=== PATIENT | female | born 1995 | race Caucasian/White ===

== ENCOUNTER → 2017-06-23 22:52 | Observation (INO) ==
[2017-06-23 22:22] LABS: Bilirubin,Urine Negative (Negative); Blood,Urine Negative (Negative); Clarity,Urine Cloudy (Clear); Color,Urine Yellow (Yellow); Glucose,Urine (UA) Normal (Normal); Ketones,Urine Negative (Negative); Leukocyte Esterase,Urine Small (Negative); Nitrite,Urine Negative (Negative); PH,Urine 7.5 pH Units (5.0-8.0); Protein,Urine 30 mg/dL (Neg-Trace); Specific Gravity,Urine > 1.030 (1.010-1.025); Urobilinogen,Urine Normal (Normal)
[2017-06-23 22:24] LABS: Bacteria,Urine Few per hpf (None-Few); Hyaline Casts,Urine None Seen per lpf (None-Few); Squamous Epithelial Cell,Urine Many per lpf (None-Few)
[2017-06-23 22:32] LABS: Amphetamine Screen,Urine Negative ng/mL (Cutoff=1000); Barbiturate Screen,Urine Negative ng/mL (Cutoff=200); Benzodiazepines Screen,Urine Negative ng/mL (Cutoff=200); Cannabinoid Screen,Urine Negative ng/mL (Cutoff = 50); Cocaine Screen,Urine Negative ng/mL (Cutoff= 300); Opiate Screen,Urine Negative ng/mL (Cutoff=300); Phencyclidine Screen,Urine Negative ng/mL (Cutoff=25)
--- NOTE | 2017-06-23 22:47 | OB/GYN Progress Note ---
Date of Encounter: 06/23/17 Time of Encounter: 22:44 - Assessment and Plan (1) 32 weeks gestation of Current Visit: Yes Status: Acute NST reactive (2) uterine contractions in third trimester, antepartum Current Visit: Yes Status: Acute Pt reports contractions are less frequent than the were earlier. She desires discharge home. SVE unchanged from last visit earlier this week. Good FM. Discharge home with precautions. Pt instructed to be on pelvic rest. She admits that she was told this by her clinic as well. Subjective - Subjective Interval history: 22 year-old presenting at 32 weeks gestation with c/o contractions that started around 1700 this evening. She admits to intercourse at around 1500 prior to the onset of contractions. She is a patient of the [facility] clinic. She has a history of contractions with her first but delivered full term. She was 2cm dilated at her PN visit earlier this week. She denies LOF, VB , or any other complaints. Good FM. Antepartum ROS: movement normal, contractions, no loss of fluid, no vaginal bleeding Objective - Vital Signs Vital Signs: Intake and Output 06/23/17 06/23/17 06/23/17 07:59 15:59 23:59 Other: Weight 53.9 kg Patient Weight 06/23/17 23:59 Weight 53.9 kg - Exam FHR: category 1 FHR comments: NST reactive. Contractions irregular Abdomen: Present: soft, gravid. Absent: tenderness Uterus: Absent: tenderness Cervical dilation: 2 cm per RN. No change from PN visit earlier this week. - Labs Labs: Abnormal lab results Urine Clarity Cloudy (Clear) A 06/23/17 22:10 Ur Specific [place] > 1.030 (1.010-1.025) H 06/23/17 22:10 Urine Protein 30 mg/dL (Neg-Trace) H 06/23/17 22:10 Ur Leukocyte Esterase Small (Negative) H 06/23/17 22:10 Urine Microscopic RBC 5-15 per hpf (0-3) H 06/23/17 22:10 Urine Microscopic WBC 5-15 per hpf (0-3) H 06/23/17 22:10 Ur Squamous Epith Cells Many per lpf (None-Few) H 06/23/17 22:10 Ur Culture Indicated? NO. (NO) A 06/23/17 22:10
== END | disposition home or self-care (01) ==
LOC: 1NENULAB
PROVIDERS: ADMIT Registered Nurse; ATTEND Registered Nurse

== ENCOUNTER → 2017-06-27 07:12 | Observation (INO) ==
[2017-06-27 03:55] LABS: Bilirubin,Urine Negative (Negative); Blood,Urine Negative (Negative); Clarity,Urine Cloudy (Clear); Color,Urine Yellow (Yellow); Glucose,Urine (UA) Normal (Normal); Ketones,Urine Negative (Negative); Leukocyte Esterase,Urine Small (Negative); Nitrite,Urine Negative (Negative); PH,Urine 6.5 pH Units (5.0-8.0); Protein,Urine Trace mg/dL (Neg-Trace); Specific Gravity,Urine 1.026 (1.010-1.025); Urobilinogen,Urine Normal (Normal)
[2017-06-27 03:57] LABS: Hyaline Casts,Urine None Seen per lpf (None-Few); RBC,Urine 0-3 per hpf (0-3); Squamous Epithelial Cell,Urine Many per lpf (None-Few)
[2017-06-27 04:09] LABS: Amorphous Sediment,Urine Few (Few); Bacteria,Urine Few per hpf (None-Few)
[2017-06-27 04:19] LABS: Amphetamine Screen,Urine Negative ng/mL (Cutoff=1000); Barbiturate Screen,Urine Negative ng/mL (Cutoff=200); Benzodiazepines Screen,Urine Negative ng/mL (Cutoff=200); Cannabinoid Screen,Urine Negative ng/mL (Cutoff = 50); Cocaine Screen,Urine Negative ng/mL (Cutoff= 300); Opiate Screen,Urine Negative ng/mL (Cutoff=300); Phencyclidine Screen,Urine Negative ng/mL (Cutoff=25)
[2017-06-27 06:12] LABS: Hematocrit 29.6 % (35.3-44.9); Hemoglobin 10.1 g/dL (11.5-15.4); Mean Corpuscular HGB Conc 34.1 g/dL (31.6-35.5); Mean Corpuscular Hemoglobin 29.2 pg (28.0-33.3); Mean Corpuscular Volume 85.5 fL (83.0-100.0); Mean Platelet Volume 9.8 fL (9.4-12.4); Platelet Count 145 K/mcL (140-400); Red Blood Count 3.46 M/mcL (3.82-4.97); Red Cell Distribution Width 12.7 % (11.5-14.5)
--- NOTE | 2017-06-27 06:19 | OB/GYN History & Physical ---
Date of Encounter: 06/27/17 Time of Encounter: 06:15 Assessment and Plan (1) 31 weeks gestation of Current visit: Yes Status: Acute admitted for observation (2) uterine contractions in third trimester, antepartum Current visit: No Status: Acute CBC Terbutaline SQ x1 History of Present Illness Chief complaint: low back pain and contractions HPI: Ms. Jiménez is a 22 year old female at 31w6d presented to labor and delivery with complaints that "baby is coming out". SVE per RN 1-2/60/-2. Patient was placed on EFM and toco. Patient reports pain started earlier in the evening and got worse. Patient drove herself and young child to hospital. Patient denies LOF or VB. Patient reports +FM. Patient denies intercourse in past 48 hours, dysuria, urinary frequency, headache, visual disturbances or nausea and vomiting. Patient receives care in [place]. Patient denies any problems with current or past . Last delivery was term. Blood type: O Positive Rubella: Immune Hep B: Nonreactive Past Med Surg Social Fam HX - Past Medical History Source: patient Medical history: no medical history Psychiatric history: no psych history - Past Surgical History Surgical History: no surgical history - Social History Smoking Status: Former smoker Smokeless Tobacco Status: No Alcohol use: none Drug use: none Current living situation: Home - Independent Activity Level: Independent ambulation Recent Out of Country Travel Within the Last 8 Weeks: No Exposure or Possible Exposure to Illness During Travel: No - Family History Mother Living Status: Still Living Hx Family GI Disorders: Yes (Crohns) Obstetrical History - Pregnancies : 2 Para: 1 Term: 1 : 0 Ab's: 0 Livin Medications and Allergies No Known Home Drugs 06/23/17 [History] 3 Allergy/AdvReac Type Severity Reaction Status Date / Time No Known Allergies Allergy Verified 06/23/17 22:02 Review of System OB - Constitutional Constitutional ROS IM: no chills, no fever(s), no headache(s) - Cardiovascular Cardiovascular: no chest pain, no lightheadedness, no palpitations - Respiratory Respiratory: no cough, no dyspnea - Gastrointestinal Gastrointestinal: no constipation, no diarrhea, no heartburn, no nausea, no vomiting - Genitourinary Genitourinary: no abnormal vaginal bleeding, no difficulty urinating, no dysuria , no flank pain, no urinary frequency, no urinary hesitancy, no urinary urgency , no vaginal discharge, no vaginal odor, no vaginal pruritis Exam - Constitutional Constitutional: well developed, well nourished, no acute distress, average body habitus - HEENT HEENT: Normocephaly, Mucus Membranes Moist - Neck Neck exam: full ROM, supple - Lungs Respiratory exam: CTAB - Cardiovascular Cardiovascular exam: RRR, +S1, +S2 - Abdomen Abdomen: Present: bowel sounds normal, gravid, non tender - Extremities Extremities exam: full ROM, normal capillary refill, normal inspection Deep Tendon Reflex Grade: 2+ Normal - Cervix Dilation: 1 (1.5 per RN) Effacement: 60 Station: -2 - Uterus Uterus exam: Present: normal size, normal contour - Comments Comments: FHR 130 bpm moderate variability +15x15 accels no decels noted. Contractions irregular at this time. Results Result Diagrams: 06/27/17 05:56 Abnormal lab results WBC 11.6 K/mcL (4.3-11.1) H 06/27/17 05:56 RBC 3.46 M/mcL (3.82-4.97) L 06/27/17 05:56 Hgb 10.1 g/dL (11.5-15.4) L 06/27/17 05:56 Hct 29.6 % (35.3-44.9) L 06/27/17 05:56 Urine Clarity Cloudy (Clear) A 06/27/17 03:30 Ur Specific [place] 1.026 (1.010-1.025) H 06/27/17 03:30 Ur Leukocyte Esterase Small (Negative) H 06/27/17 03:30 Urine Microscopic WBC 5-15 per hpf (0-3) H 06/27/17 03:30 Ur Squamous Epith Cells Many per lpf (None-Few) H 06/27/17 03:30 Ur Culture Indicated? NO. (NO) A 06/27/17 03:30 All other labs normal. - VTE Reasons for not Prescribing Prophylaxis: Medical contraindication
[~2017-06-27 07:12] MED LIST: Terbutaline 1 MG/ML VIAL SQ ONE
== END | disposition home or self-care (01) ==
LOC: 1NENULAB
PROVIDERS: ADMIT Advanced Practice Midwife; ATTEND Advanced Practice Midwife

== ENCOUNTER → 2017-07-14 15:08 | Observation (INO) ==
[2017-07-14 13:21] LABS: Bilirubin,Urine Negative (Negative); Blood,Urine Negative (Negative); Clarity,Urine Cloudy (Clear); Color,Urine Yellow (Yellow); Glucose,Urine (UA) Normal (Normal); Ketones,Urine Negative (Negative); Leukocyte Esterase,Urine Small (Negative); Nitrite,Urine Negative (Negative); Protein,Urine Trace mg/dL (Neg-Trace); Specific Gravity,Urine 1.025 (1.010-1.025); Urobilinogen,Urine Normal (Normal)
[2017-07-14 13:26] LABS: Bacteria,Urine Few per hpf (None-Few); Hyaline Casts,Urine None Seen per lpf (None-Few); Squamous Epithelial Cell,Urine Many per lpf (None-Few)
--- NOTE | 2017-07-14 14:24 | OB/GYN Progress Note ---
Date of Encounter: 07/14/17 Time of Encounter: 14:21 - Assessment and Plan (1) 34 weeks gestation of Current Visit: Yes Status: Acute Maintain appointments with [facility] labor precautions given Discharge home (2) Vaginal discharge during in third trimester Current Visit: Yes Status: Acute Vaginosis panel-negative Subjective - Subjective Principal diagnosis: Vaginal discharge in Interval history: Ms. Jiménez is a 22-year-old who presents today with complaints of leaking of fluid. She reports after urinating this morning she felt more fluid come out without her control. She also reports as the day has progressed when she bends over or immune suicide she feels a gush of fluid. Has never. Appears clear. She endorses good movement and denies contractions and vaginal bleeding. She is typically seen at [facility] as our practice transferred her care. However she does not know why but she thinks that it is because she had an incidence of contractions during her first . Antepartum ROS: new complaints, loss of fluid, movement normal, no vaginal bleeding, no contractions Objective - Exam FHR: category 1 FHR comments: Baseline 150 Moderate variability Accelerations present 15 x 15 no decelerations FHR category I Irritability on toco Auscultation: bilateral: normal Abdomen: Present: normal appearance, soft, gravid Uterus: Present: normal, firm Cervical dilation: 3 Cervix effacement: 40 station: -3 - Labs Labs: Abnormal lab results Urine Clarity Cloudy (Clear) A 07/14/17 12:49 Ur Leukocyte Esterase Small (Negative) H 07/14/17 12:49 Urine Microscopic RBC 5-15 per hpf (0-3) H 07/14/17 12:49 Urine Microscopic WBC 5-15 per hpf (0-3) H 07/14/17 12:49 Ur Squamous Epith Cells Many per lpf (None-Few) H 07/14/17 12:49 Ur Culture Indicated? NO. (NO) A 07/14/17 12:49
[2017-07-14 14:32] LABS: Candida DNA Not Detected (Not Detect); Gardnerella DNA Not Detected (Not Detect); Trichomonas DNA Not Detected (Not Detect)
[2017-07-14 15:57] LABS: Amphetamine Screen,Urine Negative ng/mL (Cutoff=1000); Barbiturate Screen,Urine Negative ng/mL (Cutoff=200); Benzodiazepines Screen,Urine Negative ng/mL (Cutoff=200); Cannabinoid Screen,Urine Negative ng/mL (Cutoff = 50); Cocaine Screen,Urine Negative ng/mL (Cutoff= 300); Opiate Screen,Urine Negative ng/mL (Cutoff=300); Phencyclidine Screen,Urine Negative ng/mL (Cutoff=25)
== END | disposition home or self-care (01) ==
LOC: 1NENULAB
PROVIDERS: ADMIT Obstetrics & Gynecology; ATTEND Obstetrics & Gynecology

== ENCOUNTER → 2017-07-31 12:40 | Observation (INO) ==
[2017-07-31 11:43] LABS: Bilirubin,Urine Negative (Negative); Blood,Urine Negative (Negative); Color,Urine Yellow (Yellow); Glucose,Urine (UA) Normal (Normal); Ketones,Urine Negative (Negative); Leukocyte Esterase,Urine Small (Negative); Nitrite,Urine Negative (Negative); Protein,Urine Negative (Neg-Trace); Urobilinogen,Urine Normal (Normal)
[2017-07-31 11:46] LABS: Bacteria,Urine Few per hpf (None-Few); Hyaline Casts,Urine None Seen per lpf (None-Few); RBC,Urine 0-3 per hpf (0-3); Squamous Epithelial Cell,Urine Many per lpf (None-Few)
--- NOTE | 2017-07-31 11:52 | OB/GYN Progress Note ---
Date of Encounter: 07/31/17 Time of Encounter: 11:49 - Assessment and Plan (1) 36 weeks gestation of Current Visit: Yes Status: Acute admitted for observation (2) NST (non-stress test) reactive on surveillance Current Visit: Yes Status: Acute baseline 130 bpm moderate variability +15x15 accels no decels noted. No contractions. Cat. 1 tracing. Subjective - Subjective Principal diagnosis: vaginal and rectal pressure Interval history: Patient is a 22 y/o @ 36w5d presents to labor and delivery with complaints of vaginal and rectal pressure. Patient denies contractions, LOF or VB. Patient does report +FM. Patient reports history of contractions around 26 weeks with current and was given terbutaline at that time. Patient denies any complications with current other than being breech at last appointment. Patient receives care at the [facility]. Patient states she last ate at 0830. Antepartum ROS: movement normal, no loss of fluid, no vaginal bleeding, no contractions Objective - Vital Signs Vital Signs: Intake and Output 07/30/17 07/31/17 07/31/17 23:59 07:59 15:59 Other: Weight 119.7 kg Patient Weight 07/31/17 23:59 Weight 119.7 kg - Exam FHR: auscultation normal, category 1 FHR comments: FHR baseline 1130 bpm moderate variability +15x15 accels no decels noted. No contractions noted. Cat. 1 tracing. Auscultation: bilateral: normal Abdomen: Present: normal appearance, soft, gravid Uterus: Present: normal Cervical dilation: 3.5 per RN station: -2
[2017-07-31 11:56] LABS: Clarity,Urine Slightly Hazy (Clear)
[2017-07-31 13:54] LABS: Amphetamine Screen,Urine Negative ng/mL (Cutoff=1000); Barbiturate Screen,Urine Negative ng/mL (Cutoff=200); Benzodiazepines Screen,Urine Negative ng/mL (Cutoff=200); Cannabinoid Screen,Urine Negative ng/mL (Cutoff = 50); Cocaine Screen,Urine Negative ng/mL (Cutoff= 300); Opiate Screen,Urine Negative ng/mL (Cutoff=300); Phencyclidine Screen,Urine Negative ng/mL (Cutoff=25)
== END | disposition home or self-care (01) ==
LOC: 1NENULAB
PROVIDERS: ADMIT Advanced Practice Midwife; ATTEND Advanced Practice Midwife

== ENCOUNTER 2018-08-15 22:34 | Observation (INO) ==
[2018-08-15 23:13] LABS: Bilirubin,Urine Negative (Negative); Blood,Urine Negative (Negative); Clarity,Urine Clear (Clear); Color,Urine Yellow (Yellow); Glucose,Urine (UA) Normal (Normal); Ketones,Urine Negative (Negative); Leukocyte Esterase,Urine Negative (Negative); Nitrite,Urine Negative (Negative); PH,Urine 6.5 pH Units (5.0-8.0); Protein,Urine Negative (Neg-Trace); Specific Gravity,Urine 1.021 (1.010-1.025); Urobilinogen,Urine Normal (Normal)
[2018-08-15] MEDS ORDERED: Betamethasone Acet/SodPhos 30 MG/5 ML VIAL IM SCH (23:45)
[2018-08-15 23:58] LABS: Amphetamine Screen,Urine Negative ng/mL (Cutoff=1000); Barbiturate Screen,Urine Negative ng/mL (Cutoff=200); Benzodiazepines Screen,Urine Negative ng/mL (Cutoff=200); Cannabinoid Screen,Urine Negative ng/mL (Cutoff = 50); Cocaine Screen,Urine Negative ng/mL (Cutoff= 300); Opiate Screen,Urine Negative ng/mL (Cutoff=300); Phencyclidine Screen,Urine Negative ng/mL (Cutoff=25)
[2018-08-16] MEDS ORDERED: Terbutaline 1 MG/ML VIAL SQ ONE ×2 (00:53→00:56)
[2018-08-16] MEDS ORDERED: Ringers Solution, Lactated 1,000 ML IVC ONE (01:24)
[2018-08-16] MEDS ORDERED: Ringers Solution, Lactated 1,000 ML ONE ×2 (02:20→05:40)
[2018-08-16] MEDS ORDERED: Morphine Sulfate 2 MG/ML SYRINGE IVP ONE (03:13)
[2018-08-16] MEDS ORDERED: NIFEdipine 10 MG CAPSULE PO ONE (05:26)
[2018-08-16 09:25] LABS: Candida DNA Not Detected (Not Detect); Gardnerella DNA Not Detected (Not Detect); Trichomonas DNA Not Detected (Not Detect)
== END 2018-08-16 09:09 | disposition home or self-care (01) ==
LOC: 1NENULAB
PROVIDERS: ADMIT Advanced Practice Midwife; ATTEND Advanced Practice Midwife

== ENCOUNTER 2018-08-16 23:45 | Observation (INO) ==
[~2018-08-16 23:45] MED LIST changes: +Betamethasone Acet/SodPhos 30 MG/5 ML VIAL IM SCH; -Terbutaline 1 MG/ML VIAL SQ ONE
[2018-08-16] MEDS ORDERED: Terbutaline 1 MG/ML VIAL SQ ONE (23:49)
--- NOTE | 2018-09-01 14:53 | Event Note ---
Date of Encounter: 08/17/18 Time of Encounter: 00:10 Patient was here for second dose of Celestone
== END 2018-08-17 00:20 | disposition home or self-care (01) ==
LOC: 1NENULAB
PROVIDERS: ADMIT Registered Nurse; ATTEND Registered Nurse

== ENCOUNTER → 2018-08-29 23:18 | Observation (INO) ==
[2018-08-29 21:32] LABS: Bilirubin,Urine Negative (Negative); Blood,Urine Negative (Negative); Clarity,Urine Turbid (Clear); Color,Urine Yellow (Yellow); Glucose,Urine (UA) Normal (Normal); Ketones,Urine Negative (Negative); Leukocyte Esterase,Urine Small (Negative); Nitrite,Urine Negative (Negative); PH,Urine 7.5 pH Units (5.0-8.0); Protein,Urine Trace mg/dL (Neg-Trace); Specific Gravity,Urine 1.023 (1.010-1.025); Urobilinogen,Urine Normal (Normal)
[2018-08-29 21:34] LABS: Bacteria,Urine Many per hpf (None-Few); Hyaline Casts,Urine None Seen per lpf (None-Few); RBC,Urine 0-3 per hpf (0-3); Squamous Epithelial Cell,Urine Many per lpf (None-Few)
[2018-08-29 21:53] LABS: Amphetamine Screen,Urine Negative ng/mL (Cutoff=1000); Barbiturate Screen,Urine Negative ng/mL (Cutoff=200); Benzodiazepines Screen,Urine Negative ng/mL (Cutoff=200); Cannabinoid Screen,Urine Negative ng/mL (Cutoff = 50); Cocaine Screen,Urine Negative ng/mL (Cutoff= 300); Opiate Screen,Urine Negative ng/mL (Cutoff=300); Phencyclidine Screen,Urine Negative ng/mL (Cutoff=25)
--- NOTE | 2018-08-29 22:48 | Discharge Summary ---
Date of Encounter: 08/29/18 Time of Encounter: 22:46 - Discharge Diagnosis (1) 31 weeks gestation of Priority: Primary Status: Acute Comments: Admit to observation for labor evaluation (2) uterine contractions in third trimester, antepartum Priority: Secondary Status: Acute Comments: Rare contractions noted. No cervical change in > 1 hr. (3) NST (non-stress test) reactive on surveillance Priority: Secondary Status: Acute Comments: FHR 145 bpm, moderate variability, +15x15 accels, no decels. - Discharge Medications Prescriptions: No Action Complete Caplet 1 mg PO DAILY Ferrous Sulfate 1 tab PO DAILY Cyclobenzaprine [Flexeril] 10 mg PO HS PRN #5 tablet PRN Reason: back pain NIFEdipine [Procardia] 10 mg PO Q6HR Home Medications: Complete Caplet 1 mg PO DAILY 07/31/17 [History] Ferrous Sulfate 1 tab PO DAILY 08/19/18 [History] Cyclobenzaprine [Flexeril] 10 mg PO HS PRN #5 tablet 08/20/18 [Rx] NIFEdipine [Procardia] 10 mg PO Q6HR 08/29/18 [History] Allergies/Adverse Reactions: Allergy/AdvReac Type Severity Reaction Status Date / Time No Known Allergies Allergy Verified 08/29/18 21:09 Data Procedures and tests throughout hospitalization: Laboratory Tests 08/29/18 08/29/18 21:15 21:15 Urine Color Yellow Urine Clarity Turbid A Urine pH 7.5 Ur Specific [place] 1.023 Urine Protein Trace Urine Glucose (UA) Normal Urine Ketones Negative Urine Blood Negative Urine Nitrite Negative Urine Bilirubin Negative Urine Urobilinogen Normal Ur Leukocyte Esterase Small H Urine Microscopic RBC 0-3 Urine Microscopic WBC 5-15 H Ur Squamous Epith Cells Many H Urine Bacteria Many H Hyaline Casts None Seen Ur Culture Indicated? YES A Urine Opiates Screen Negative Ur Buprenorphine Scrn Negative Ur Barbiturates Screen Negative Ur Phencyclidine Scrn Negative Ur Amphetamines Screen Negative U Benzodiazepines Scrn Negative Urine Cocaine Screen Negative U Marijuana (THC) Screen Negative Ur Drug Screen Interp See Below Labs on day of discharge: Labs from last 24 hours 08/29/18 08/29/18 21:15 21:15 Urine Color Yellow Urine Clarity Turbid A Urine pH 7.5 Ur Specific [place] 1.023 Urine Protein Trace Urine Glucose (UA) Normal Urine Ketones Negative Urine Blood Negative Urine Nitrite Negative Urine Bilirubin Negative Urine Urobilinogen Normal Ur Leukocyte Esterase Small H Urine Microscopic RBC 0-3 Urine Microscopic WBC 5-15 H Ur Squamous Epith Cells Many H Urine Bacteria Many H Hyaline Casts None Seen Ur Culture Indicated? YES A Urine Opiates Screen Negative Ur Buprenorphine Scrn Negative Ur Barbiturates Screen Negative Ur Phencyclidine Scrn Negative Ur Amphetamines Screen Negative U Benzodiazepines Scrn Negative Urine Cocaine Screen Negative U Marijuana (THC) Screen Negative Ur Drug Screen Interp See Below Preliminary micro results at discharge 08/29/18 21:15 Urine Culture - Preliminary Urine,Clean Catch Culture is incubating. Date of admission: 08/29/18 20:57 Discharging clinician: Susy Jones Anticipated date of discharge: 08/29/18 - Patient Status Disposition: Home, Self-Care Condition: Good Functional capacity at discharge: independent ambulation Overall status at discharge: patient is progressing back to baseline - Discharge Instructions Follow Up With: Jaxon Malin DO [Partnered Physician] - - Diet and Activity Activity: resume usual activities as tolerated Diet: regular diet Hospital Course TRANSPORTER DRIVER Hospital course: Patient arrived with complaint of possible contractions. She was here approximately 2 weeks ago for contractions and was given a course of steroids at that time. Her cervix on admission remains unchanged from previous visit approximately one week ago. She reports positive movement, denies vaginal bleeding and fluid leakage. On SVE, RN noted a large amount of yeast- like discharge on glove so vaginosis panel was collected and is pending at time of note. Will treat for any positive results. Patient has Procardia 10mg to take q6 hr prn for contractions. She is to return to her OB care provider as scheduled for routine care. Time Attestation: Total time spent providing and/or coordinating discharge services: Time Spent: Less than 30 minutes Exam - Constitutional General appearance IM: A&O X 3, no acute distress - Respiratory Respiratory exam: Absent: respiratory distress - Cardiovascular Cardiovascular exam IM: Absent: irregular rhythm - GI/Abdominal GI/Abdominal exam IM: normal bowel sounds Incision: normal, dry, intact - Rectal Rectal exam: deferred - Uterine Tone: Firm - Extremities Exam Extremities exam IM: Absent: calf tenderness - VTE Reasons for not Prescribing Prophylaxis: Treatment not Indicated - Low risk for VTE
[~2018-08-29 23:18] MED LIST changes: -Betamethasone Acet/SodPhos 30 MG/5 ML VIAL IM SCH; +hydrOXYzine pamoate 25 MG CAPSULE PO ONE
[2018-08-29 23:53] LABS: Trichomonas DNA Not Detected (Not Detect)
[2018-08-29 23:54] LABS: Candida DNA Not Detected (Not Detect); Gardnerella DNA Not Detected (Not Detect)
== END | disposition home or self-care (01) ==
LOC: 1NENULAB
PROVIDERS: ADMIT Obstetrics & Gynecology; ATTEND Obstetrics & Gynecology

== ENCOUNTER 2018-09-20 07:27 | Observation (INO) | END 2018-09-20 09:44 | disposition home or self-care (01) | LOC: 1NENULAB | PROVIDERS: ADMIT Obstetrics & Gynecology; ATTEND Obstetrics & Gynecology ==

== ENCOUNTER 2018-09-26 20:09 | Observation (INO) ==
[2018-09-26 20:36] LABS: Bilirubin,Urine Negative (Negative); Blood,Urine Moderate (Negative); Clarity,Urine Clear (Clear); Color,Urine Yellow (Yellow); Glucose,Urine (UA) Normal (Normal); Ketones,Urine Negative (Negative); Leukocyte Esterase,Urine Small (Negative); Nitrite,Urine Negative (Negative); Protein,Urine Negative (Neg-Trace); Specific Gravity,Urine 1.008 (1.010-1.025); Urobilinogen,Urine Normal (Normal)
[2018-09-26 20:37] LABS: Bacteria,Urine Few per hpf (None-Few); Hyaline Casts,Urine None Seen per lpf (None-Few); Squamous Epithelial Cell,Urine Many per lpf (None-Few)
[2018-09-26 20:46] LABS: Amphetamine Screen,Urine Negative ng/mL (Cutoff=1000); Barbiturate Screen,Urine Negative ng/mL (Cutoff=200); Benzodiazepines Screen,Urine Negative ng/mL (Cutoff=200); Cannabinoid Screen,Urine Negative ng/mL (Cutoff = 50); Cocaine Screen,Urine Negative ng/mL (Cutoff= 300); Opiate Screen,Urine Negative ng/mL (Cutoff=300); Phencyclidine Screen,Urine Negative ng/mL (Cutoff=25)
[2018-09-26 22:30] LABS: Candida DNA Not Detected (Not Detect); Gardnerella DNA Not Detected (Not Detect); Trichomonas DNA Not Detected (Not Detect)
== END 2018-09-26 21:20 | disposition home or self-care (01) ==
LOC: 1NENULAB
PROVIDERS: ADMIT Advanced Practice Midwife; ATTEND Advanced Practice Midwife

== ENCOUNTER 2018-10-01 21:39 | Observation (INO) ==
[2018-10-01 23:05] LABS: Bilirubin,Urine Negative (Negative); Blood,Urine Negative (Negative); Clarity,Urine Cloudy (Clear); Color,Urine Yellow (Yellow); Glucose,Urine (UA) Normal (Normal); Ketones,Urine Negative (Negative); Leukocyte Esterase,Urine Large (Negative); Nitrite,Urine Negative (Negative); Protein,Urine Negative (Neg-Trace); Urobilinogen,Urine Normal (Normal)
[2018-10-01 23:10] LABS: Bacteria,Urine Moderate per hpf (None-Few); Hyaline Casts,Urine None Seen per lpf (None-Few); RBC,Urine 0-3 per hpf (0-3); Squamous Epithelial Cell,Urine Many per lpf (None-Few); WBC,Urine 15-30 per hpf (0-3)
[2018-10-01 23:14] LABS: Amphetamine Screen,Urine Negative ng/mL (Cutoff=1000); Barbiturate Screen,Urine Negative ng/mL (Cutoff=200); Benzodiazepines Screen,Urine Negative ng/mL (Cutoff=200); Cannabinoid Screen,Urine Negative ng/mL (Cutoff = 50); Cocaine Screen,Urine Negative ng/mL (Cutoff= 300); Opiate Screen,Urine Negative ng/mL (Cutoff=300); Phencyclidine Screen,Urine Negative ng/mL (Cutoff=25)
== END 2018-10-02 | disposition home or self-care (01) ==
LOC: 1NENULAB
PROVIDERS: ADMIT Advanced Practice Midwife; ATTEND Advanced Practice Midwife

== ENCOUNTER 2018-10-03 03:48 | Observation (INO) ==
[2018-10-03] MEDS ORDERED: Ringers Solution, Lactated 1,000 ML ONE (04:09)
[2018-10-03 04:36] LABS: Amphetamine Screen,Urine Negative ng/mL (Cutoff=1000); Barbiturate Screen,Urine Negative ng/mL (Cutoff=200); Benzodiazepines Screen,Urine Negative ng/mL (Cutoff=200); Cannabinoid Screen,Urine Negative ng/mL (Cutoff = 50); Cocaine Screen,Urine Negative ng/mL (Cutoff= 300); Opiate Screen,Urine Negative ng/mL (Cutoff=300); Phencyclidine Screen,Urine Negative ng/mL (Cutoff=25)
--- NOTE | 2018-10-03 06:15 | Discharge Summary ---
Date of Encounter: 10/03/18 Time of Encounter: 06:15 - Discharge Diagnosis (1) 36 weeks gestation of Priority: Primary Status: Acute Comments: Follow up with Dr. Malin as scheduled PTL parameters discussed Discharge home (2) NST (non-stress test) reactive on surveillance Priority: Secondary Status: Acute (3) uterine contractions in third trimester, antepartum Priority: Secondary Status: Acute Comments: Monitored for 2+ hours with no cervical change. - Discharge Medications Prescriptions: No Action Complete Caplet 1 mg PO DAILY Ferrous Sulfate 1 tab PO DAILY NIFEdipine [Procardia] 10 mg PO Q6HR Cetirizine HCl [Zyrtec] 10 mg PO Home Medications: Complete Caplet 1 mg PO DAILY 07/31/17 [History] Ferrous Sulfate 1 tab PO DAILY 08/19/18 [History] NIFEdipine [Procardia] 10 mg PO Q6HR 08/29/18 [History] Cetirizine HCl [Zyrtec] 10 mg PO 09/20/18 [History] Allergies/Adverse Reactions: Allergy/AdvReac Type Severity Reaction Status Date / Time No Known Allergies Allergy Verified 10/01/18 21:57 Data Procedures and tests throughout hospitalization: Laboratory Tests 10/03/18 03:56 Urine Opiates Screen Negative Ur Buprenorphine Scrn Negative Ur Barbiturates Screen Negative Ur Phencyclidine Scrn Negative Ur Amphetamines Screen Negative U Benzodiazepines Scrn Negative Urine Cocaine Screen Negative U Marijuana (THC) Screen Negative Ur Drug Screen Interp See Below Labs on day of discharge: Labs from last 24 hours 10/03/18 03:56 Urine Opiates Screen Negative Ur Buprenorphine Scrn Negative Ur Barbiturates Screen Negative Ur Phencyclidine Scrn Negative Ur Amphetamines Screen Negative U Benzodiazepines Scrn Negative Urine Cocaine Screen Negative U Marijuana (THC) Screen Negative Ur Drug Screen Interp See Below Date of admission: 10/03/18 03:48 Discharging clinician: Lizbeth Stephens Anticipated date of discharge: 10/03/18 - Patient Status Disposition: Home, Self-Care Condition: Good Functional capacity at discharge: independent ambulation Overall status at discharge: patient is progressing back to baseline - Discharge Instructions Follow Up With: Jaxon Malin DO [Partnered Physician] - - Diet and Activity Activity: increase activity as tolerated Diet: regular diet 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 Jiménez is a who presents with c/o contractions since 1400 yesterday. She was seen in L&D at that time and discharged home with no cervical change. She endorses good fm and denies lof, vb. She reports she and her partner had intercourse today and afterwards the contractions became worse. She was 3/70/-2 on admission per RN and made no cervical exchange mechanic 2 hours of monitoring. She was offered medication to help with the discomfort and declined. She was given an IV bolus and contractions slowed a bit. Cat 1 FHT. Discharged home with instructions to follow up this week. Time Attestation: Total time spent providing and/or coordinating discharge services: Time Spent: Less than 30 minutes Exam - Constitutional General appearance IM: A&O X 3, morbidly obese, answers questions appropriately - Respiratory Respiratory exam: Present: CTAB - Cardiovascular Cardiovascular exam IM: Present: RRR, +S1, +S2 - GI/Abdominal GI/Abdominal exam IM: normal bowel sounds, no peritoneal signs - Rectal Rectal exam: deferred - Uterine Tone: Firm - Extremities Exam Extremities exam IM: Present: full ROM, normal capillary refill, normal inspection, radial pulses palpable and symmetrical - Neurological Exam Neurological exam: alert, CN II-XII intact, normal gait, oriented X3, reflexes normal, no focal deficits, strengths equal and symetr throughout - VTE Reasons for not Prescribing Prophylaxis: Treatment not Indicated - Low risk for VTE
== END 2018-10-03 06:16 | disposition home or self-care (01) ==
LOC: 1NENULAB
PROVIDERS: ADMIT Advanced Practice Midwife; ATTEND Advanced Practice Midwife

== ENCOUNTER 2018-10-15 17:17 | Inpatient (IN) ==
--- NOTE | 2018-10-15 15:09 | OB/GYN History & Physical ---
Date of Encounter: 10/15/18 Time of Encounter: 15:06 Assessment and Plan (1) and not yet delivered in third trimester Current visit: Yes Status: Acute (2) 38 weeks gestation of Current visit: Yes Status: Acute (3) Previous section Current visit: Yes Status: Acute (4) Active labor at term Current visit: Yes Status: Acute (5) Desires (vaginal after ) trial Current visit: Yes Status: Acute Continue to observe the patient closely once patient gets to 6 cm we will admit the patient had epidural and anticipate vaginal delivery History of Present Illness HPI: Ms. Jiménez is a 23 year old female With 3 para 2 at 38-2/7 weeks who presented to labor and delivery complaining of contractions every 2-3 minutes. Patient's had multiple visits to labor and delivery for contractions. Patient is a previous section for breech presentation. First baby was delivered vaginally without any complications. Patient has consented for a TOLAC. Patient keeps changing her mind because she is wanting this baby out and keeps thinking she just wants to proceed on with section. Patient was encouraged to be patient and it will happen naturally. Patient had been 2 cm and recently was seen in the changed to 3-4 cm. Upon arrival to labor and delivery today she was still 3-4 was having irregular contractions. We observed the patient for couple hours when reexamined her she had made cervical change was good for centimeters in 2 hours later she is a good 5 cm. Patient is 0 to +1 station with bulging membranes at this time having contractions every 2-3 minutes. Did inform the patient need to just keep watching her when she gets to approximately 6 cm we can admit the patient and proceed on with delivery. She is not complaining of any leaking of fluid but states the contractions get more comfortable and they are now becoming more frequent. Past Med Surg Social Fam HX - Past Medical History Source: patient, old records reviewed Medical history: no medical history Psychiatric history: no psych history - Past Surgical History Surgical History: no surgical history, (LTCS) Additional surgical history: c/s in 2018 - Social History Smoking Status: Former smoker Smokeless Tobacco Status: No Alcohol use: none Drug use: none Occupational status: unemployed Current living situation: Home - Independent Activity Level: Independent ambulation Recent Out of Country Travel Within the Last 8 Weeks: No Exposure or Possible Exposure to Illness During Travel: No - Family History Mother Adopted: No Family Member Ethnicity: Non- Living Status: Still Living Hx Family Cardiac Disorders: No Hx Family Respiratory Disorders: No Hx Family Cancer: No Hx Family GI Disorders: No Hx Family Endocrine Disorder: No Hx Family Neuromuscular Disorders: No Hx Family Neurologic Disorders: No Hx Family HEENT Disorders: No Hx Family Autoimmune Disorders: No - Additional Family History Additional family history: Family history noncontributory Obstetrical History - Pregnancies : 3 Para: 2 Term: 2 : 0 Ab's: 0 Livin Medications and Allergies Complete Caplet 1 mg PO DAILY 07/31/17 [History] Ferrous Sulfate 1 tab PO DAILY 08/19/18 [History] Cetirizine HCl [Zyrtec] 10 mg PO 09/20/18 [History] Allergy/AdvReac Type Severity Reaction Status Date / Time No Known Allergies Allergy Verified 10/01/18 21:57 Review of System OB All systems PM: reviewed and no additional remarkable complaints except as stated Exam - Constitutional Constitutional: well developed, well nourished, moderate distress, thin - HEENT HEENT: EOMI, PERRL, Mucus Membranes Moist - Neck Neck exam: full ROM - Lungs Respiratory exam: CTAB - Cardiovascular Cardiovascular exam: RRR - Abdomen Abdomen: Present: bowel sounds normal, gravid ( heart tones 140s reactive contractions every 2 minutes) Results All other labs normal. - VTE Reasons for not Prescribing Prophylaxis: Treatment not Indicated - Low risk for VTE
--- NOTE | 2018-10-15 17:07 | OB Labor Progress Note ---
Date of Encounter: 10/15/18 Time of Encounter: 17:05 Labor Progress Note - Subjective Subjective: Patient states contractions getting more uncomfortable still every 2-3 minutes. - Cervix Cervix: 5-6/80/+1 - Heart Tones Heart Tones: heart tones 140s reactive - [place]: Contractions every 2 minutes - Interventions Interventions: We will admit patient will get patient epidural was comfortable will artificially rupture if she does not continue make appropriate change in her own we will augment with Pitocin planus anticipate vaginal delivery
[~2018-10-15 17:17] MED LIST changes: +Famotidine 20 MG/2 ML VIAL IVP PRN; +Lidocaine 1% 20 ML MDV INFILT PRN; +Metoclopramide 10 MG/2 ML VIAL IVP PRN; +Naloxone 0.4 MG/ML INJ IVP PRN; +Ondansetron 4 MG/2 ML VIAL IVP PRN; +Ringers Solution, Lactated 1,000 ML IVC SCH; -hydrOXYzine pamoate 25 MG CAPSULE PO ONE
[2018-10-15 17:52] LABS: Basophils % 0.3 %; Eosinophils # 0.2 K/mcL (0.0-0.6); Eosinophils % 1.3 %; Hematocrit 30.8 % (35.3-44.9); Hemoglobin 9.7 g/dL (11.5-15.4); Immature Granulocytes % 0.8 % (0-4); Lymphocytes # 2.7 K/mcL (0.6-4.6); Mean Corpuscular HGB Conc 31.5 g/dL (31.6-35.5); Mean Corpuscular Hemoglobin 27.3 pg (28.0-33.3); Mean Corpuscular Volume 86.8 fL (83.0-100.0); Mean Platelet Volume 9.6 fL (9.4-12.4); Monocytes # 0.9 K/mcL (0.0-1.3); Monocytes % 6.1 %; Platelet Count 209 K/mcL (140-400); Red Blood Count 3.55 M/mcL (3.82-4.97); Segmented Neutrophils % 73.5 %
[2018-10-15] MEDS ORDERED: *HR* FentaNYL (PF) 100 MCG/2 ML VIAL ONE (20:07)
[2018-10-15] MEDS ORDERED: Ropivacaine/PF 0.2% 20 ML VIAL ONE (20:07)
[2018-10-15] MEDS ORDERED: Epidural Premix (fent/bupiv) 110 ML EP ONE (20:08)
[2018-10-15] MEDS ORDERED: Epidural Premix (fent/bupiv) 110 ML EP SCH (20:30)
[2018-10-15] MEDS ORDERED: EPHEDrine 50 MG/ML VIAL IVP PRN (20:30)
--- NOTE | 2018-10-15 20:35 | Anesthesia Evaluation PreOp ---
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 Other Medical History: Denies Any Significant HX Anesthesia History: No Prior Anesthetic Complications, Past Anesthesia (csection) : Yes Alcohol Use: none Drug use: none Medications and Allergies Complete Caplet 1 mg PO DAILY 07/31/17 [History] Ferrous Sulfate 1 tab PO DAILY 08/19/18 [History] Cetirizine HCl [Zyrtec] 10 mg PO 09/20/18 [History] Allergy/AdvReac Type Severity Reaction Status Date / Time No Known Allergies Allergy Verified 10/01/18 21:57 - Meds/Allergy Pre-op Review Medications Reviewed: Yes Allergies Reviewed: Yes Beta Blockers on Current Med List: No Anesthesia Results - Labs 10/15/18 17:36 Anesthesia Exam O2 Sat Height 1.6 m Weight 57 kg Height: 63 Weight: 125 - HEENT Pupil (Motor): Pupils equal Mallampati: II Teeth: Normal Oral Opening: Greater than 3 - SHAKE TABLE OPERATOR LOC: Oriented SHAKE TABLE OPERATOR Motor: Normal RUE, Normal LUE, Normal RLE, Normal LLE, Normal Face SHAKE TABLE OPERATOR Sensory: Normal: RUE, LUE, RLE, LLE, Face - Cardiac Rhythm: Regular Murmur: None JVD: No Carotid Bruit: No - Pulmonary Breath Sounds: bilateral Clear Respiratory Effort: Symmetrical Anesthesia Assess/Plan ASA Score: 2 Level of consciousness: Cooperative Anesthetic Plan: Epidural Monitoring Plan: Standard Monitors
--- NOTE | 2018-10-15 20:41 | Anesthesia Procedures ---
Date of Encounter: 10/15/18 Time of Encounter: 20:04 (procedure end time 2039) Procedures: Anesthesia - Epidural/Spinal Patient ID/Chart reviewed: Yes Patient examined: Yes OB Eval: Contractions: Non-stressed pattern Consent Obtained: Yes Supplemental Oxygen: None/Room Air Site Prep: Aseptic Technique Patient position: upright Local Anesthetic: Lidocaine 1% Amount of Local Anesthetic used: 2 Touhy Needle Gauge: 18 Touhy Needle Depth (cm): 4 Catheter Depth at Skin (cm): 10 Test Dose (1.5% Lido + Epi): Volume given (mls): 3 Test Dose Result: Negative Loading Dose: Fentanyl (mcg): 100 Loading Dose: Other: 0.2% ropivicaine 4ml Loading Dose Administered: Thru Touhy Needle Infusion Med: 0.125% Bupivacaine w/ 2 mcg/ml Fentanyl Infusion Rate (mls/hr): [address]: Tegaderm Interspace Used: L3-L4 Loss of Resistance (ALFRED): Yes Blood: No CSF: No Paresthesia: No Procedure: Strict asepsis, one attempt at L3-4. Good ALFRED, bolus through needle, catheter threaded easily. FHR unchanged
[2018-10-15] MEDS ORDERED: *HR* Nalbuphine 10 MG/ML AMPUL IV PRN (21:04)
--- NOTE | 2018-10-15 21:11 | OB Labor Progress Note ---
Date of Encounter: 10/15/18 Time of Encounter: 21:08 Labor Progress Note - Subjective Subjective: patient comfortable after her epidural still feeling some in her back - Cervix Cervix: 6/80/+2 - Heart Tones Heart Tones: heart tones 140s reactive - Panaca Panaca: IUPC placed contractions every 2-3 minutes - Interventions Interventions: continue current care anticipate
--- NOTE | 2018-10-15 22:01 | Anesthesia Progress Note ---
Date of Encounter: 10/15/18 Time of Encounter: 21:58 Anesthesia Note - Note Note: 10/15/18 21:58 Called to patient room for pain 10/10 with contractions. Bolus of 8ml of 0.2% ropivicaine and gtt increased to 14ml/hr
[2018-10-15] MEDS ORDERED: Oxytocin 20 units/ LR 1000 mL 20 UNIT/1,000 ML BAG IVC SCH (23:15)
--- NOTE | 2018-10-16 01:32 | OB/GYN Procedure Note ---
Delivery - Delivery Date: 10/16/18 Provider: Jaxon Malin Intrapartum events: none Delivery induction: none Delivery augmentation: rupture of membranes Delivery monitor: external FHT, external uterine, internal uterine Anesthesia: epidural Quantitated Blood Loss: 50 - (s) A Infant Delivery Date: 10/16/18 Infant Delivery Time: 00:57 Presentation: vertex Position: RAMON Route of delivery: Gender: Female Viability: Viable Pounds: 5 Ounces: 14 Weight Gram: 2.65 kg at 1 minute: 9 at 5 mins: 9 Shoulder Dystocia: not encountered Specimens collected: cord blood Cord: 3 umbilical vessels - Repair Episiotomy: none Laceration Description: Periurethral (left) - Complications Delivery complications: none Delivery comments: Patient is a 23-year-old 3 para 2 at 38-2/7 weeks who presented to labor and delivery with complaint of contractions. Patient was noted to be 3-4 cm on admission which is what she has been patient's contractions every 2-3 minutes we observe the patient and she made cervical change went to 4 cm and 5 cm is not 6 cm where we admitted her. Patient is a previous section and wanted to TOLAC, she had previously signed consent to allow us to proceed on with this procedure. Patient did receive an epidural once she was comfortable she was artificially ruptured at 6 cm. We did not need to give any additional augmentation patient progressed to complete pushed approximately 3 times delivering a viable female infant in left occiput anterior presentation at 00 57. There was no nuchal cord, no meconium, infant was bulb suctioned on the abdomen, weight was 5 lbs. 14 oz. Placenta was then delivered spontaneously 3 vessel cord, sheepskin pickler Dr. Malin, first press operator Leonides Damian OMS 3, anesthesia epidural, estimated blood loss 50 mL. Lower uterine segment was palpated and noted be intact. Patient did have a left periurethral laceration was repaired with 4-0 Monocryl in a running locking stitch. Cervix and vagina was visualized intact. Patient tolerated delivery well she will be observed 2 hours before being taken the floor.
[2018-10-16] MEDS ORDERED: Acetaminophen 325 MG TABLET PO PRN (04:11)
[2018-10-16] MEDS ORDERED: Oxytocin 20 units/ LR 1000 mL 20 UNIT/1,000 ML BAG IVC SCH (04:11)
[2018-10-16] MEDS: Ibuprofen 600 MG TABLET PO PRN ×2 (08:41→19:52)
[2018-10-16] MEDS ORDERED: Prenatal Vit/FA 1 EACH TABLET PO SCH (09:00)
--- NOTE | 2018-10-16 10:37 | Discharge Summary ---
Date of Encounter: 10/16/18 Time of Encounter: 10:41 - Discharge Diagnosis (1) (vaginal after ) Priority: Primary Status: Acute Comments: Doing well, will d/c home. (2) , delivered Priority: Primary Status: Acute - Discharge Medications Prescriptions: New Ibuprofen [Motrin] 600 mg PO Q6HR PRN #30 tablet PRN Reason: Cramping No Action Complete Caplet 1 mg PO DAILY Ferrous Sulfate 1 tab PO DAILY Cetirizine HCl [Zyrtec] 10 mg PO Home Medications: Complete Caplet 1 mg PO DAILY 07/31/17 [History] Ferrous Sulfate 1 tab PO DAILY 08/19/18 [History] Cetirizine HCl [Zyrtec] 10 mg PO 09/20/18 [History] Ibuprofen [Motrin] 600 mg PO Q6HR PRN #30 tablet 10/16/18 [Rx] Allergies/Adverse Reactions: Allergy/AdvReac Type Severity Reaction Status Date / Time No Known Allergies Allergy Verified 10/01/18 21:57 Data Procedures and tests throughout hospitalization: Laboratory Tests 10/15/18 17:36 WBC 15.0 H RBC 3.55 L Hgb 9.7 L Hct 30.8 L MCV 86.8 MCH 27.3 L MCHC 31.5 L RDW 13.0 Plt Count 209 MPV 9.6 Immature Gran % 0.8 Seg Neutrophils % 73.5 Lymphocytes % 18.0 Monocytes % 6.1 Eosinophils % 1.3 Basophils % 0.3 Neutrophils # 11.0 H Lymphocytes # 2.7 Monocytes # 0.9 Eosinophils # 0.2 Basophils # 0.0 Labs on day of discharge: Labs from last 24 hours 10/15/18 17:36 WBC 15.0 H RBC 3.55 L Hgb 9.7 L Hct 30.8 L MCV 86.8 MCH 27.3 L MCHC 31.5 L RDW 13.0 Plt Count 209 MPV 9.6 Immature Gran % 0.8 Seg Neutrophils % 73.5 Lymphocytes % 18.0 Monocytes % 6.1 Eosinophils % 1.3 Basophils % 0.3 Neutrophils # 11.0 H Lymphocytes # 2.7 Monocytes # 0.9 Eosinophils # 0.2 Basophils # 0.0 - Impressions Doing well, no c/o. Desires to go home. Minimal pain. Appropriate lochia and cramping. 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 Attestation: Total time spent providing and/or coordinating discharge services: Exam - Constitutional Vitals: Temp Pulse Resp BP Pulse Ox 98.0 F 82 16 97/54 97 10/16/18 05:30 10/16/18 08:45 10/16/18 08:45 10/16/18 05:30 10/16/18 05:30 General appearance IM: A&O X 3 - Respiratory Respiratory exam: Present: CTAB - Cardiovascular Cardiovascular exam IM: Present: RRR - GI/Abdominal GI/Abdominal exam IM: normal bowel sounds - Uterus Position: 2 Fingers Below Umbilicus - Extremities Exam Extremities exam IM: Present: full ROM - Neurological Exam Neurological exam: oriented X3 - VTE Reasons for not Prescribing Prophylaxis: Treatment not Indicated - Low risk for VTE
[2018-10-16] MEDS ORDERED: Benzocaine/Menthol 56 GM AEROSOL SPRAY TP PRN (11:04)
[2018-10-16 20:22] VITALS: BP 103/64
== END 2018-10-16 21:10 | disposition home or self-care (01) ==
LOC: 1NENULAB → 1NENUOBS 10-16 03:43
PROVIDERS: ADMIT Obstetrics & Gynecology; ATTEND Obstetrics & Gynecology